=== PATIENT | female | born 1960 | race Caucasian/White ===

== ENCOUNTER → 2019-12-29 | Outpatient (CLI) | payer BC ==
--- NOTE | 2019-12-29 15:59 | RAD ---
TRANSVAGINAL History: Postmenopausal bleeding Comparison: None. Findings: Multiple transvaginal sonographic images of the pelvis are submitted. Uterus measured 7.8 x 4 x 2.7 cm. Endometrium measured 0.7 cm in thickness. Right ovary was not visualized, reported history of oophorectomy. Left ovary measured 6 x 4.8 x 4.2 cm. There is a hypoechoic lesion of the left ovary about 4.6 x 4.2 x 4.2 cm, minimal low level echoes present. There is no internal vascularity of the lesion. There is normal color flow and low resistance vascularity of the left ovary. There are several nabothian cyst. No free fluid is demonstrated. Impression: 1. Endometrium is somewhat thickened for postmenopausal patient, could be due to hyperplasia, neoplasm not excluded. 2. There is left adnexal cyst. Electronically signed by: Irineo Manzanares MD (12/29/2019 3:56 PM) [facility]
== END | disposition home or self-care (01) ==
LOC: US 13:51
PROVIDERS: ATTEND Specialist
DX: N95.0 Postmenopausal bleeding (principal); N83.8 Other noninflammatory disorders of ovary, fallopian tube and broad ligament; R93.89 Abnormal findings on diagnostic imaging of other specified body structures; N88.8 Other specified noninflammatory disorders of cervix uteri
CPT/HCPCS: 76830